=== PATIENT | female | born 1985 | race Two or more races ===

== ENCOUNTER 2023-08-01 19:44 | Emergency (ER) | payer MEDICAID, OTHER ==
[~2023-08-01] VITALS: Ht 154.9 cm; Wt 80.0 kg
[2023-08-02] MEDS ORDERED: DexAMETHasone SOD PHOS 10MG/1ML VIAL INJ IM ONE (01:15)
[2023-08-02] MEDS ORDERED: KETOROLAC TROMETH 60MG/2ML VIAL IM ONE (01:15)
[2023-08-02 02:06] LABS: COVID19 ANTIGEN SOFIA FIA NEGATIVE (NEGATIVE)
[2023-08-02 02:19] LABS: Rapid Strep A Screen-Throat Positive
[2023-08-02] MEDS ORDERED: PENICILLIN G BENZ 600000 UNIT/ML 1ML SYRG IM ONE ×3 (02:30→03:00)
[2023-08-02 03:00] VITALS: BP 135/74; PULSE 78; RESP 16; TEMP 98; O2SAT 95
[2023-08-02] MEDS ORDERED: PENICILLIN G PROC & BENZAT 1200000 UNITS/2 ML SYRG IM ONE (03:00)
[2023-08-02] MEDS ORDERED: PENICILLIN G BENZ 1200000 UNITS/2 ML SYRG IM ONE (03:07)
[2023-08-02] MEDS ORDERED: IBUP-1454 PO (03:45)
[2023-08-02] MEDS ORDERED: ACE3T PO (03:45)
[2023-08-03] MEDS ORDERED: AMOX875T4 PO (02:33)
[2023-08-03] MEDS ORDERED: PRED20TA2 PO (02:33)
== END 2023-08-02 04:03 | disposition home or self-care (01) ==
LOC: ER 19:44
DX: J02.0 Streptococcal pharyngitis (principal); B95.5 Unspecified streptococcus as the cause of diseases classified elsewhere; Z20.822 Contact with and (suspected) exposure to COVID-19
CPT/HCPCS: 36415; 70490; 87426; 87880; 96372; 99285; J0561; J1100; J1885

== ENCOUNTER 2023-08-02 22:36 | Emergency (ER) | payer MEDICAID ==
[~2023-08-02] VITALS: Ht 154.9 cm; Wt 77.2 kg
[~2023-08-02 22:36] MED LIST: ACE3T PO; IBUP-1454 PO
[2023-08-03 01:40] VITALS: BP 117/72; PULSE 86; RESP 18; TEMP 98.4; O2SAT 97
[2023-08-03] MEDS ORDERED: DexAMETHasone SOD PHOS 10MG/1ML VIAL INJ IM ONE (02:30)
[2023-08-03] MEDS ORDERED: cefTRIAXone SOD 1,000 MG VL IM ONE (02:30)
[2023-08-03] MEDS ORDERED: KETOROLAC TROMETH 60MG/2ML VIAL IM ONE (02:30)
[2023-08-03] MEDS ORDERED: AMOX875T4 PO (02:33)
[2023-08-03] MEDS ORDERED: PRED20TA2 PO (02:33)
== END 2023-08-03 02:57 | disposition home or self-care (01) ==
LOC: ER 22:36
DX: H66.91 Otitis media, unspecified, right ear (principal); Z79.899 Other long term (current) drug therapy; Z98.890 Other specified postprocedural states
CPT/HCPCS: 96372; 99284; J0696; J1100; J1885